=== PATIENT | male | born 1990 | race Two or more races ===

== ENCOUNTER 2018-06-28 20:47 | Emergency (ER) | payer SELFPAY ==
[2018-06-28 21:04] VITALS: BMI 24.2
[2018-06-28] MEDS ORDERED: MEDROL DOSE PACK4 MG PO (22:01)
[2018-06-28 23:34] VITALS: BP 119/80
== END 2018-06-28 23:34 | disposition home or self-care (01) ==
LOC: D.ER 20:47
DX: L23.7 Allergic contact dermatitis due to plants, except food (principal)